=== PATIENT | male | born 1970 | race African-American/Black ===

== ENCOUNTER 2023-11-26 13:18 | Emergency (ER) | payer SELFPAY ==
[2023-11-26] MEDS: Aspirin 81 MG Tab.Chew PO ONE (13:58)
[2023-11-26 14:23] LABS: BASOPHILS ABSOLUTE AUTO 0.05 K/uL (0.00-0.20); BASOPHILS PERCENT AUTO 0.9 % (0.0-1.0); EOSINOPHILS PERCENT AUTO 1.8 % (0.0-6.0); HEMATOCRIT 34.3 % (42.0-52.0); IMMATURE GRAN ABSOLUTE AUTO 0.05 K/uL (0.00-0.05); IMMATURE GRAN PERCENT AUTO 0.9 % (0.0-0.4); LYMPHOCYTES ABSOLUTE AUTO 0.64 K/uL (1.00-4.80); LYMPHOCYTES PERCENT AUTO 11.7 % (24.0-44.0); MEAN CORPUSCULAR HEMOGLOBIN 27.2 pg (28.0-32.0); MEAN CORPUSCULAR HGB CONC 32.1 g/dL (32.0-36.0); MEAN CORPUSCULAR VOLUME 84.9 fL (83.0-99.0); MONOCYTES PERCENT AUTO 12.8 % (0.0-8.0); NEUTROPHILS ABSOLUTE AUTO 3.91 K/uL (1.80-7.70); NEUTROPHILS PERCENT AUTO 71.9 % (41.0-71.0); PLATELET COUNT,PLT 184 K/uL (150-400); RED BLOOD CELL COUNT 4.04 M/uL (4.52-5.90); WHITE BLOOD CELL COUNT,WBC 5.45 K/uL (3.9-11.3)
[2023-11-26 15:01] LABS: CORONAVIRUS COVID-19 NAA NEGATIVE (NEGATIVE); INFLUENZA A NAA NEGATIVE (NEGATIVE); INFLUENZA B NAA NEGATIVE (NEGATIVE); RESPIRATORY SYNCYTIAL VIR NAA NEGATIVE (NEGATIVE)
[2023-11-26 15:03] LABS: A/G RATIO 0.7 (0.9-1.6); ALBUMIN 2.6 g/dL (3.4-5.0); BILIRUBIN TOTAL 0.8 mg/dL (0.2-1.0); CARBON DIOXIDE,CO2 34.4 mmol/L (21.0-32.0); CREATININE 10.9 mg/dL (0.8-1.3); EST CRCL DRUG DOSING (CG) 7.36 mL/min; POTASSIUM,K 4.7 mmol/L (3.5-5.1); PROTEIN TOTAL,TP 6.5 g/dL (6.4-8.2)
[2023-11-26 15:06] LABS: TSH ULTRASENSITIVE 2.19 uIU/mL (0.36-3.74)
== END 2023-11-26 19:24 | disposition left against medical advice (07) ==
LOC: MW.ED 13:18
DX: J81.1 Chronic pulmonary edema (principal); I12.0 Hypertensive chronic kidney disease with stage 5 chronic kidney disease or end stage renal disease; N18.6 End stage renal disease; Z99.2 Dependence on renal dialysis; Z75.8 Other problems related to medical facilities and other health care
CPT/HCPCS: 0241U; 36415; 71045; 80053; 83690; 83735; 83880; 84443; 84484; 85025; 93005; 99285; A9270

== ENCOUNTER 2023-11-30 15:55 | Emergency (ER) | payer SELFPAY ==
[2023-11-30 16:46] LABS: BASOPHILS ABSOLUTE AUTO 0.06 K/uL (0.00-0.20); BASOPHILS PERCENT AUTO 1.1 % (0.0-1.0); EOSINOPHILS ABSOLUTE AUTO 0.07 K/uL (0.00-0.45); EOSINOPHILS PERCENT AUTO 1.2 % (0.0-6.0); HEMATOCRIT 32.1 % (42.0-52.0); HEMOGLOBIN 10.6 g/dL (14.0-18.0); IMMATURE GRAN ABSOLUTE AUTO 0.09 K/uL (0.00-0.05); IMMATURE GRAN PERCENT AUTO 1.6 % (0.0-0.4); LYMPHOCYTES ABSOLUTE AUTO 0.76 K/uL (1.00-4.80); LYMPHOCYTES PERCENT AUTO 13.4 % (24.0-44.0); MEAN CORPUSCULAR VOLUME 81.7 fL (83.0-99.0); MEAN PLATELET VOLUME 9.7 fL (9.4-12.4); MONOCYTES ABSOLUTE AUTO 0.61 K/uL (0.00-0.80); MONOCYTES PERCENT AUTO 10.8 % (0.0-8.0); NEUTROPHILS ABSOLUTE AUTO 4.07 K/uL (1.80-7.70); NEUTROPHILS PERCENT AUTO 71.9 % (41.0-71.0); PLATELET COUNT,PLT 196 K/uL (150-400); RED BLOOD CELL COUNT 3.93 M/uL (4.52-5.90); WHITE BLOOD CELL COUNT,WBC 5.66 K/uL (3.9-11.3)
[2023-11-30 17:12] LABS: A/G RATIO 0.6 (0.9-1.6); ALBUMIN 2.4 g/dL (3.4-5.0); BILIRUBIN TOTAL 0.7 mg/dL (0.2-1.0); CALCIUM 7.9 mg/dL (8.5-10.1); CARBON DIOXIDE,CO2 32.4 mmol/L (21.0-32.0); CREATININE 6.8 mg/dL (0.8-1.3); EST CRCL DRUG DOSING (CG) 14.11 mL/min; POTASSIUM,K 3.6 mmol/L (3.5-5.1); PROTEIN TOTAL,TP 6.4 g/dL (6.4-8.2)
== END 2023-11-30 18:52 | disposition home or self-care (01) ==
LOC: MW.ED 15:55
DX: K80.20 Calculus of gallbladder without cholecystitis without obstruction (principal); J90 Pleural effusion, not elsewhere classified; Z75.8 Other problems related to medical facilities and other health care
CPT/HCPCS: 36415; 76705; 76705-26; 80053; 83690; 85025; 99284

== ENCOUNTER 2023-12-23 23:45 | Emergency (ER) | payer MEDICARE ==
[2023-12-24 00:35] LABS: BASOPHILS ABSOLUTE AUTO 0.06 K/uL (0.00-0.20); BASOPHILS PERCENT AUTO 0.9 % (0.0-1.0); EOSINOPHILS ABSOLUTE AUTO 0.12 K/uL (0.00-0.45); EOSINOPHILS PERCENT AUTO 1.8 % (0.0-6.0); HEMATOCRIT 33.7 % (42.0-52.0); HEMOGLOBIN 11.1 g/dL (14.0-18.0); IMMATURE GRAN ABSOLUTE AUTO 0.09 K/uL (0.00-0.05); IMMATURE GRAN PERCENT AUTO 1.4 % (0.0-0.4); LYMPHOCYTES ABSOLUTE AUTO 0.78 K/uL (1.00-4.80); MEAN CORPUSCULAR HEMOGLOBIN 27.3 pg (28.0-32.0); MEAN CORPUSCULAR HGB CONC 32.9 g/dL (32.0-36.0); MEAN CORPUSCULAR VOLUME 82.8 fL (83.0-99.0); MEAN PLATELET VOLUME 9.6 fL (9.4-12.4); MONOCYTES ABSOLUTE AUTO 0.82 K/uL (0.00-0.80); MONOCYTES PERCENT AUTO 12.6 % (0.0-8.0); NEUTROPHILS ABSOLUTE AUTO 4.64 K/uL (1.80-7.70); NEUTROPHILS PERCENT AUTO 71.3 % (41.0-71.0); PLATELET COUNT,PLT 222 K/uL (150-400); RED BLOOD CELL COUNT 4.07 M/uL (4.52-5.90); WHITE BLOOD CELL COUNT,WBC 6.51 K/uL (3.9-11.3)
[2023-12-24 01:07] LABS: CALCIUM 8.3 mg/dL (8.5-10.1); CARBON DIOXIDE,CO2 26.9 mmol/L (21.0-32.0); EST CRCL DRUG DOSING (CG) 6.85 mL/min; POTASSIUM,K 5.3 mmol/L (3.5-5.1)
== END 2023-12-24 02:56 | disposition home or self-care (01) ==
LOC: MW.ED 23:45
DX: R07.9 Chest pain, unspecified (principal); Z79.899 Other long term (current) drug therapy
CPT/HCPCS: 36415; 71045; 71045-26; 80048; 84484; 85025; 93005; 93010; 99285

== ENCOUNTER 2024-03-30 19:29 | Emergency (ER) | payer SELFPAY ==
[2024-03-30] MEDS ORDERED: Sodium Chloride 0.9% 10 ML Syringe FLUSH PRN (19:33)
[2024-03-30] MEDS ORDERED: Sodium Chloride 0.9% 2.5 ML Syringe FLUSH PRN (19:33)
[2024-03-30 19:54] LABS: BASOPHILS ABSOLUTE AUTO 0.04 K/uL (0.00-0.20); BASOPHILS PERCENT AUTO 0.6 % (0.0-1.0); EOSINOPHILS ABSOLUTE AUTO 0.15 K/uL (0.00-0.45); EOSINOPHILS PERCENT AUTO 2.4 % (0.0-6.0); HEMATOCRIT 31.7 % (42.0-52.0); HEMOGLOBIN 10.5 g/dL (14.0-18.0); IMMATURE GRAN ABSOLUTE AUTO 0.03 K/uL (0.00-0.05); IMMATURE GRAN PERCENT AUTO 0.5 % (0.0-0.4); LYMPHOCYTES ABSOLUTE AUTO 0.89 K/uL (1.00-4.80); LYMPHOCYTES PERCENT AUTO 14.4 % (24.0-44.0); MEAN CORPUSCULAR HEMOGLOBIN 28.7 pg (28.0-32.0); MEAN CORPUSCULAR HGB CONC 33.1 g/dL (32.0-36.0); MEAN CORPUSCULAR VOLUME 86.6 fL (83.0-99.0); MEAN PLATELET VOLUME 9.8 fL (9.4-12.4); MONOCYTES ABSOLUTE AUTO 0.68 K/uL (0.00-0.80); NEUTROPHILS ABSOLUTE AUTO 4.39 K/uL (1.80-7.70); NEUTROPHILS PERCENT AUTO 71.1 % (41.0-71.0); PLATELET COUNT,PLT 180 K/uL (150-400); RED BLOOD CELL COUNT 3.66 M/uL (4.52-5.90); WHITE BLOOD CELL COUNT,WBC 6.18 K/uL (3.9-11.3)
[2024-03-30 20:18] LABS: A/G RATIO 0.7 (0.9-1.6); ALBUMIN 2.8 g/dL (3.4-5.0); BILIRUBIN TOTAL 1.2 mg/dL (0.2-1.0); CALCIUM 8.4 mg/dL (8.5-10.1); CARBON DIOXIDE,CO2 25.8 mmol/L (21.0-32.0); CREATININE 16.6 mg/dL (0.8-1.3); EST CRCL DRUG DOSING (CG) 5.78 mL/min; POTASSIUM,K 4.7 mmol/L (3.5-5.1); PROTEIN TOTAL,TP 7.1 g/dL (6.4-8.2)
[2024-03-30] MEDS: Nitroglycerin 2% Oint 1 GM UD Packet TOP ONE (21:46)
[2024-03-30] MEDS: cloNIDine 0.1 MG Tab PO ONE (21:46)
[2024-03-31] MEDS: Ondansetron 4 MG/2 ML SDV IVPUSH ONE (02:04)
[2024-03-31] MEDS: Acetaminophen 325 MG Tab PO ONE (02:04)
== END 2024-03-31 05:16 | disposition home or self-care (01) ==
LOC: MW.ED 19:29
DX: J81.1 Chronic pulmonary edema (principal); I12.0 Hypertensive chronic kidney disease with stage 5 chronic kidney disease or end stage renal disease; N18.6 End stage renal disease; Z79.899 Other long term (current) drug therapy; Z75.8 Other problems related to medical facilities and other health care
CPT/HCPCS: 36415; 71045; 80053; 84484; 85025; 93005; 96374; 99285; A9270; J2405; 93010

== ENCOUNTER 2024-03-31 10:07 | Emergency (ER) | payer SELFPAY ==
[~2024-03-31 10:07] MED LIST: Etomidate 2 MG/ML 20 ML SDV IVPUSH ONE; Rocuronium 100 MG/10 ML MDV IVPUSH ONE
[2024-03-31] MEDS: Sodium Bicarbonate 8.4% 50 MEQ/50 ML Syringe IVPUSH ONE (10:07)
[2024-03-31] MEDS: 50% Dextrose in Water 50 ML Syringe IVPUSH ONE (10:07)
[2024-03-31] MEDS: Nitroglycerin/D5W 25 MG/250 ML BOTTLE IV SCH (10:08)
[2024-03-31] MEDS ORDERED: Ampicillin/Sulbactam Na 3 GM in Sodium Chloride 0.9% 100 ML IV ONE (10:13)
[2024-03-31] MEDS: propofoL 1,000 MG/100 ML 100 ML IV SCH ×2 (10:15→12:45)
[2024-03-31 10:17] LABS: EOSINOPHILS ABSOLUTE AUTO 0.17 K/uL (0.00-0.45); EOSINOPHILS PERCENT AUTO 1.6 % (0.0-6.0); HEMATOCRIT 36.9 % (42.0-52.0); HEMOGLOBIN 11.2 g/dL (14.0-18.0); IMMATURE GRAN ABSOLUTE AUTO 0.09 K/uL (0.00-0.05); IMMATURE GRAN PERCENT AUTO 0.9 % (0.0-0.4); LYMPHOCYTES ABSOLUTE AUTO 3.18 K/uL (1.00-4.80); LYMPHOCYTES PERCENT AUTO 30.5 % (24.0-44.0); MEAN CORPUSCULAR HEMOGLOBIN 28.6 pg (28.0-32.0); MEAN CORPUSCULAR HGB CONC 30.4 g/dL (32.0-36.0); MEAN CORPUSCULAR VOLUME 94.1 fL (83.0-99.0); MEAN PLATELET VOLUME 10.3 fL (9.4-12.4); MONOCYTES ABSOLUTE AUTO 1.27 K/uL (0.00-0.80); MONOCYTES PERCENT AUTO 12.2 % (0.0-8.0); NEUTROPHILS ABSOLUTE AUTO 5.62 K/uL (1.80-7.70); NEUTROPHILS PERCENT AUTO 53.8 % (41.0-71.0); PLATELET COUNT,PLT 217 K/uL (150-400); RED BLOOD CELL COUNT 3.92 M/uL (4.52-5.90); WHITE BLOOD CELL COUNT,WBC 10.43 K/uL (3.9-11.3)
[2024-03-31] MEDS: fentaNYL/Normal Saline 2,500 MCG in Premix Bag 1 BAG IV PRN (10:23)
[2024-03-31 10:29] LABS: INR 1.12 (0.86-1.11)
[2024-03-31] MEDS: Propofol 200 MG/20 ML SDV IVPUSH ONE ×2 (10:34→12:39)
[2024-03-31] MEDS: Calcium Gluconate 10% 1 GM/10 ML SDV IVPUSH ONE (10:35)
[2024-03-31 10:36] LABS: PCO2 ARTERIAL 63 mmHG (35-45); PO2 ARTERIAL 149 mmHG (80-105)
[2024-03-31 10:37] LABS: BICARBONATE,ARTERIAL 24 mEq/L (22-26)
[2024-03-31] MEDS: Nitroglycerin 0.4 MG Tab.SL SL PRN (10:44)
[2024-03-31 10:50] LABS: A/G RATIO 0.7 (0.9-1.6); ALANINE AMINOTRANSFERASE,ALT 59 IU/L (14-63); ALBUMIN 2.8 g/dL (3.4-5.0); ALKALINE PHOSPHATASE 140 U/L (46-116); ASPARTATE AMNIOTRANSFERASE,AST 38 IU/L (15-37); BILIRUBIN TOTAL 1.3 mg/dL (0.2-1.0); BLOOD UREA NITROGEN,BUN 39 mg/dL (7.0-18.0); CALCIUM 8.4 mg/dL (8.5-10.1); CARBON DIOXIDE,CO2 21.9 mmol/L (21.0-32.0); CHLORIDE,CL 98 mmol/L (98-107); CREATININE 8.9 mg/dL (0.8-1.3); GLUCOSE RANDOM 144 mg/dL (74-106); LIPASE 21 U/L (16-77); MAGNESIUM 2.5 mg/dL (1.8-2.4); PHOSPHORUS 5.2 mg/dL (2.6-4.7); POTASSIUM,K 3.6 mmol/L (3.5-5.1); PROTEIN TOTAL,TP 7.1 g/dL (6.4-8.2); SODIUM,NA 145 mmol/L (136-148)
[2024-03-31 10:51] LABS: ESTIMATED GFR 7 mL/min (>60)
[2024-03-31] MEDS: Metoprolol Tartrate 5 MG/5 ML SDV IVPUSH ONE (11:53)
[2024-03-31 11:58] LABS: PRO B-TYPE NATRIUR PEPT,BNPPRO > 35000 pg/mL (0-125)
[2024-03-31] MEDS: Propofol 200 MG/20 ML SDV IVPUSH STA (12:04)
[2024-03-31] MEDS ORDERED: Midazolam HCl In 0.9 % NaCl/Pf 100 ML IV SCH (12:45)
[2024-03-31] MEDS: cefTRIAXone 2 GM in Sodium Chloride 0.9% 50 ML IV ONE (12:51)
[2024-03-31] MEDS ORDERED: propofoL 1,000 MG/100 ML 100 ML IV ONE (12:53)
[2024-03-31] MEDS: Doxycycline 100 MG in Sodium Chloride 0.9% 100 ML IV ONE (12:59)
[2024-03-31] MEDS: Calcium Gluconate 10% 1 GM/10 ML SDV ONE (13:46)
[2024-03-31] MEDS: Propofol 200 MG/20 ML SDV ONE (13:46)
[2024-03-31] MEDS: Nitroglycerin/D5W 25 MG/250 ML BOTTLE ONE (13:47)
[2024-03-31] MEDS: fentaNYL/Normal Saline 250 ML ONE (13:47)
== END 2024-03-31 13:31 ==
LOC: MW.ED 10:07
DX: J96.01 Acute respiratory failure with hypoxia (principal); J81.0 Acute pulmonary edema; I48.91 Unspecified atrial fibrillation; I16.1 Hypertensive emergency; R41.82 Altered mental status, unspecified; N18.6 End stage renal disease; E16.2 Hypoglycemia, unspecified; R56.9 Unspecified convulsions; Z99.2 Dependence on renal dialysis
CPT/HCPCS: 31500; 36415; 36600; 51702; 70450; 71045; 71250; 74176; 80053; 82803; 83605; 83690; 83735; 83880; 84100; 84484; 85025; 85610; 87040; 93005; 96365; 96366; 96367; 96368; 96375; 99291; 99292; A9270; J0612; J0696; J2305; J2704; J3490; 36620; 93010; 99285

== ENCOUNTER 2024-04-14 05:09 | Emergency (ER) | payer SELFPAY ==
[2024-04-14] MEDS: Cyclobenzaprine 10 MG Tab PO ONE (06:18)
[2024-04-14] MEDS: Acetaminophen 500 MG Tab PO ONE (06:18)
== END 2024-04-14 06:31 | disposition home or self-care (01) ==
LOC: MW.ED 05:09
DX: S16.1XXA Strain of muscle, fascia and tendon at neck level, initial encounter (principal); Z79.899 Other long term (current) drug therapy; X58.XXXA Exposure to other specified factors, initial encounter
CPT/HCPCS: 99283; A9270

== ENCOUNTER 2024-04-30 04:55 | Emergency (ER) | payer MEDICARE ==
[2024-04-30] MEDS ORDERED: Sodium Chloride 0.9% 2.5 ML Syringe FLUSH PRN (05:26)
[2024-04-30] MEDS ORDERED: Sodium Chloride 0.9% 20 ML SDV IV PRN (05:26)
[2024-04-30] MEDS ORDERED: Sodium Chloride 0.9% 10 ML Syringe FLUSH PRN (05:26)
[2024-04-30 05:44] LABS: BASOPHILS ABSOLUTE AUTO 0.05 K/uL (0.00-0.20); BASOPHILS PERCENT AUTO 0.7 % (0.0-1.0); EOSINOPHILS ABSOLUTE AUTO 0.18 K/uL (0.00-0.45); EOSINOPHILS PERCENT AUTO 2.6 % (0.0-6.0); HEMATOCRIT 32.3 % (42.0-52.0); HEMOGLOBIN 9.9 g/dL (14.0-18.0); IMMATURE GRAN ABSOLUTE AUTO 0.03 K/uL (0.00-0.05); IMMATURE GRAN PERCENT AUTO 0.4 % (0.0-0.4); LYMPHOCYTES ABSOLUTE AUTO 0.97 K/uL (1.00-4.80); MEAN CORPUSCULAR HGB CONC 30.7 g/dL (32.0-36.0); MEAN CORPUSCULAR VOLUME 91.5 fL (83.0-99.0); MEAN PLATELET VOLUME 9.9 fL (9.4-12.4); NEUTROPHILS PERCENT AUTO 69.3 % (41.0-71.0); PLATELET COUNT,PLT 288 K/uL (150-400); RED BLOOD CELL COUNT 3.53 M/uL (4.52-5.90); WHITE BLOOD CELL COUNT,WBC 6.93 K/uL (3.9-11.3)
[2024-04-30 06:12] LABS: A/G RATIO 0.5 (0.9-1.6); ALBUMIN 2.7 g/dL (3.4-5.0); BILIRUBIN TOTAL 0.9 mg/dL (0.2-1.0); CALCIUM 9.2 mg/dL (8.5-10.1); CARBON DIOXIDE,CO2 33.1 mmol/L (21.0-32.0); CREATININE 10.1 mg/dL (0.8-1.3); EST CRCL DRUG DOSING (CG) 9.5 mL/min; POTASSIUM,K 4.5 mmol/L (3.5-5.1); PROTEIN TOTAL,TP 7.9 g/dL (6.4-8.2)
[2024-04-30] MEDS: cefTRIAXone 1 GM in Sodium Chloride 0.9% 50 ML IV ONE (07:17)
[2024-04-30] MEDS: Doxycycline 100 MG in Sodium Chloride 0.9% 100 ML IV SCH (07:21)
[2024-04-30] MEDS: Nitroglycerin 0.4 MG Tab.SL SL ONE (07:21)
[2024-04-30] MEDS: Nitroglycerin/D5W 25 MG/250 ML BOTTLE IV SCH (07:52)
== END 2024-04-30 09:53 ==
LOC: MW.ED 04:55
DX: J96.01 Acute respiratory failure with hypoxia (principal); I16.0 Hypertensive urgency; I12.0 Hypertensive chronic kidney disease with stage 5 chronic kidney disease or end stage renal disease; N18.9 Chronic kidney disease, unspecified; J81.0 Acute pulmonary edema; J90 Pleural effusion, not elsewhere classified; Z99.2 Dependence on renal dialysis; Z79.899 Other long term (current) drug therapy
CPT/HCPCS: 36415; 71046; 80053; 83880; 84484; 85025; 87040; 87428; 93005; 96365; 96366; 96367; 96368; 99285; A9270; J0696; J2305; J3490; 93010

== ENCOUNTER 2024-05-25 07:12 | Emergency (ER) | payer MEDICARE ==
[2024-05-25 07:42] LABS: BASOPHILS ABSOLUTE AUTO 0.05 K/uL (0.00-0.20); EOSINOPHILS ABSOLUTE AUTO 0.16 K/uL (0.00-0.45); EOSINOPHILS PERCENT AUTO 3.3 % (0.0-6.0); HEMATOCRIT 29.3 % (42.0-52.0); HEMOGLOBIN 9.3 g/dL (14.0-18.0); IMMATURE GRAN ABSOLUTE AUTO 0.04 K/uL (0.00-0.05); IMMATURE GRAN PERCENT AUTO 0.8 % (0.0-0.4); LYMPHOCYTES ABSOLUTE AUTO 0.64 K/uL (1.00-4.80); LYMPHOCYTES PERCENT AUTO 13.2 % (24.0-44.0); MEAN CORPUSCULAR HEMOGLOBIN 28.9 pg (28.0-32.0); MEAN CORPUSCULAR HGB CONC 31.7 g/dL (32.0-36.0); MONOCYTES ABSOLUTE AUTO 0.54 K/uL (0.00-0.80); MONOCYTES PERCENT AUTO 11.1 % (0.0-8.0); NEUTROPHILS ABSOLUTE AUTO 3.43 K/uL (1.80-7.70); NEUTROPHILS PERCENT AUTO 70.6 % (41.0-71.0); PLATELET COUNT,PLT 186 K/uL (150-400); RED BLOOD CELL COUNT 3.22 M/uL (4.52-5.90); WHITE BLOOD CELL COUNT,WBC 4.86 K/uL (3.9-11.3)
[2024-05-25] MEDS: Iopamidol 755 MG/ML 500 ML Multipack Bottle IVPUSH STA (07:44)
[2024-05-25 07:45] LABS: PH,VENOUS 7.38 (7.32-7.43)
[2024-05-25 07:46] LABS: BASE EXCESS VENOUS 5.3 (-2.0-3.0)
[2024-05-25 08:08] LABS: A/G RATIO 0.6 (0.9-1.6); ALANINE AMINOTRANSFERASE,ALT 19 IU/L (14-63); ALBUMIN 2.5 g/dL (3.4-5.0); ALKALINE PHOSPHATASE 106 U/L (46-116); ASPARTATE AMNIOTRANSFERASE,AST 18 IU/L (15-37); BILIRUBIN TOTAL 0.6 mg/dL (0.2-1.0); BLOOD UREA NITROGEN,BUN 57 mg/dL (7.0-18.0); CALCIUM 8.3 mg/dL (8.5-10.1); CHLORIDE,CL 104 mmol/L (98-107); CREATININE 7.8 mg/dL (0.8-1.3); GLUCOSE RANDOM 107 mg/dL (74-106); MAGNESIUM 2.4 mg/dL (1.8-2.4); POTASSIUM,K 4.5 mmol/L (3.5-5.1); PROTEIN TOTAL,TP 6.8 g/dL (6.4-8.2); SODIUM,NA 141 mmol/L (136-148)
[2024-05-25 08:14] LABS: ESTIMATED GFR 8 mL/min (>60)
[2024-05-25] MEDS: Aspirin 81 MG Tab.Chew PO ONE (08:57)
[2024-05-25] MEDS: Clopidogrel 75 MG Tab PO ONE (08:57)
== END 2024-05-25 12:15 | disposition home or self-care (01) ==
LOC: MW.ED 07:12
DX: R20.2 Paresthesia of skin (principal); Z79.899 Other long term (current) drug therapy
CPT/HCPCS: 36415; 70450; 70496; 70498; 70551; 71045; 80053; 82803; 83735; 84484; 85025; 93005; 99285; A9270; Q9967; 99283

== ENCOUNTER 2024-06-08 03:04 | Emergency (ER) | payer MEDICARE ==
[2024-06-08] MEDS ORDERED: Lidocaine 1% with EPINEPHrine 1:200,000 30 ML SDV ONE (04:44)
[2024-06-08] MEDS ORDERED: HYDROmorphone 1 MG/ML Syringe ONE (04:47)
[2024-06-08] MEDS ORDERED: Ondansetron 4 MG/2 ML SDV ONE (04:53)
[2024-06-08] MEDS ORDERED: ceFAZolin 2 GM Vial ONE (05:15)
[2024-06-08] MEDS ORDERED: Sodium Chloride 0.9% 100 ML ONE (05:28)
[2024-06-08 11:18] LABS: A/G RATIO 0.7 (0.9-1.6); ALBUMIN 2.4 g/dL (3.4-5.0); BILIRUBIN TOTAL 0.9 mg/dL (0.2-1.0); CALCIUM 8.2 mg/dL (8.5-10.1); CREATININE 7.8 mg/dL (0.8-1.3); EST CRCL DRUG DOSING (CG) 12.16 mL/min; POTASSIUM,K 4.1 mmol/L (3.5-5.1)
[2024-06-09 22:03] LABS: BASOPHILS ABSOLUTE AUTO 0.07 K/uL (0.00-0.20); BASOPHILS PERCENT AUTO 0.7 % (0.0-1.0); EOSINOPHILS ABSOLUTE AUTO 0.28 K/uL (0.00-0.45); EOSINOPHILS PERCENT AUTO 2.9 % (0.0-6.0); HEMATOCRIT 26.3 % (42.0-52.0); HEMOGLOBIN 8.1 g/dL (14.0-18.0); IMMATURE GRAN ABSOLUTE AUTO 0.05 K/uL (0.00-0.05); IMMATURE GRAN PERCENT AUTO 0.5 % (0.0-0.4); LYMPHOCYTES PERCENT AUTO 23.1 % (24.0-44.0); MEAN CORPUSCULAR HEMOGLOBIN 27.7 pg (28.0-32.0); MEAN CORPUSCULAR HGB CONC 30.8 g/dL (32.0-36.0); MEAN CORPUSCULAR VOLUME 90.1 fL (83.0-99.0); MEAN PLATELET VOLUME 9.8 fL (9.4-12.4); MONOCYTES ABSOLUTE AUTO 1.06 K/uL (0.00-0.80); MONOCYTES PERCENT AUTO 11.1 % (0.0-8.0); NEUTROPHILS ABSOLUTE AUTO 5.87 K/uL (1.80-7.70); NEUTROPHILS PERCENT AUTO 61.7 % (41.0-71.0); PLATELET COUNT,PLT 237 K/uL (150-400); RED BLOOD CELL COUNT 2.92 M/uL (4.52-5.90); WHITE BLOOD CELL COUNT,WBC 9.53 K/uL (3.9-11.3)
[2024-06-09 22:03] LABS: BASOPHILS ABSOLUTE AUTO 0.04 K/uL (0.00-0.20); BASOPHILS PERCENT AUTO 0.9 % (0.0-1.0); EOSINOPHILS ABSOLUTE AUTO 0.17 K/uL (0.00-0.45); EOSINOPHILS PERCENT AUTO 3.8 % (0.0-6.0); HEMATOCRIT 27.3 % (42.0-52.0); HEMOGLOBIN 8.4 g/dL (14.0-18.0); IMMATURE GRAN ABSOLUTE AUTO 0.04 K/uL (0.00-0.05); IMMATURE GRAN PERCENT AUTO 0.9 % (0.0-0.4); LYMPHOCYTES ABSOLUTE AUTO 0.72 K/uL (1.00-4.80); LYMPHOCYTES PERCENT AUTO 16.2 % (24.0-44.0); MEAN CORPUSCULAR HEMOGLOBIN 28.2 pg (28.0-32.0); MEAN CORPUSCULAR HGB CONC 30.8 g/dL (32.0-36.0); MEAN CORPUSCULAR VOLUME 91.6 fL (83.0-99.0); MONOCYTES ABSOLUTE AUTO 0.55 K/uL (0.00-0.80); MONOCYTES PERCENT AUTO 12.4 % (0.0-8.0); NEUTROPHILS ABSOLUTE AUTO 2.93 K/uL (1.80-7.70); NEUTROPHILS PERCENT AUTO 65.8 % (41.0-71.0); PLATELET COUNT,PLT 178 K/uL (150-400); RED BLOOD CELL COUNT 2.98 M/uL (4.52-5.90); WHITE BLOOD CELL COUNT,WBC 4.45 K/uL (3.9-11.3)
== END 2024-06-08 06:01 ==
LOC: MW.ED 03:04
DX: T82.590A Other mechanical complication of surgically created arteriovenous fistula, initial encounter (principal); T82.838A Hemorrhage due to vascular prosthetic devices, implants and grafts, initial encounter; N18.6 End stage renal disease; Z99.2 Dependence on renal dialysis; Z91.010 Allergy to peanuts; Z91.018 Allergy to other foods; Z88.8 Allergy status to other drugs, medicaments and biological substances
CPT/HCPCS: 36415; 36430; 80053; 85025; 86850; 86900; 86901; 86920; 99285; J0690; J1171; J2405; P9016; 12001; 99291

== ENCOUNTER 2024-06-29 09:52 | Emergency (ER) | payer MEDICARE, MEDICAID ==
[2024-06-29 10:48] LABS: A/G RATIO 0.5 (0.9-1.6); ALBUMIN 2.4 g/dL (3.4-5.0); BILIRUBIN TOTAL 0.7 mg/dL (0.2-1.0); CALCIUM 8.4 mg/dL (8.5-10.1); CARBON DIOXIDE,CO2 32.6 mmol/L (21.0-32.0); CREATININE 8.9 mg/dL (0.8-1.3); EST CRCL DRUG DOSING (CG) 10.66 mL/min; POTASSIUM,K 4.8 mmol/L (3.5-5.1); PROTEIN TOTAL,TP 6.9 g/dL (6.4-8.2)
== END 2024-06-29 10:48 ==
LOC: MW.ED 09:52
DX: T82.838A Hemorrhage due to vascular prosthetic devices, implants and grafts, initial encounter (principal); N18.6 End stage renal disease; Z99.2 Dependence on renal dialysis; Z79.899 Other long term (current) drug therapy
CPT/HCPCS: 36415; 80053; 99285

== ENCOUNTER 2024-08-08 04:39 | Emergency (ER) | payer MEDICARE, MEDICAID ==
[2024-08-08 05:02] LABS: BASOPHILS ABSOLUTE AUTO 0.05 K/uL (0.00-0.20); BASOPHILS PERCENT AUTO 0.6 % (0.0-1.0); EOSINOPHILS ABSOLUTE AUTO 0.07 K/uL (0.00-0.45); EOSINOPHILS PERCENT AUTO 0.9 % (0.0-6.0); HEMATOCRIT 35.7 % (42.0-52.0); HEMOGLOBIN 11.3 g/dL (14.0-18.0); IMMATURE GRAN ABSOLUTE AUTO 0.05 K/uL (0.00-0.05); IMMATURE GRAN PERCENT AUTO 0.6 % (0.0-0.4); LYMPHOCYTES ABSOLUTE AUTO 0.93 K/uL (1.00-4.80); LYMPHOCYTES PERCENT AUTO 11.9 % (24.0-44.0); MEAN CORPUSCULAR HEMOGLOBIN 28.6 pg (28.0-32.0); MEAN CORPUSCULAR HGB CONC 31.7 g/dL (32.0-36.0); MEAN CORPUSCULAR VOLUME 90.4 fL (83.0-99.0); MEAN PLATELET VOLUME 10.4 fL (9.4-12.4); MONOCYTES ABSOLUTE AUTO 0.89 K/uL (0.00-0.80); MONOCYTES PERCENT AUTO 11.4 % (0.0-8.0); NEUTROPHILS ABSOLUTE AUTO 5.85 K/uL (1.80-7.70); NEUTROPHILS PERCENT AUTO 74.6 % (41.0-71.0); PLATELET COUNT,PLT 178 K/uL (150-400); RED BLOOD CELL COUNT 3.95 M/uL (4.52-5.90); WHITE BLOOD CELL COUNT,WBC 7.84 K/uL (3.9-11.3)
[2024-08-08 05:28] LABS: A/G RATIO 0.6 (0.9-1.6); ALBUMIN 2.9 g/dL (3.4-5.0); BILIRUBIN TOTAL 0.9 mg/dL (0.2-1.0); CALCIUM 8.6 mg/dL (8.5-10.1); CARBON DIOXIDE,CO2 30.4 mmol/L (21.0-32.0); CREATININE 10.7 mg/dL (0.8-1.3); EST CRCL DRUG DOSING (CG) 8.86 mL/min; POTASSIUM,K 4.6 mmol/L (3.5-5.1); PROTEIN TOTAL,TP 7.4 g/dL (6.4-8.2)
[2024-08-08] MEDS: hydrALAZINE 20 MG/ML SDV IVPUSH ONE ×2 (06:38→08:27)
[2024-08-08] MEDS ORDERED: Naloxone 0.4 MG/ML SDV IVPUSH PRN (08:47)
[2024-08-08] MEDS: Morphine 2 MG/ML SYRINGE IVPUSH ONE (09:00)
== END 2024-08-08 10:01 | disposition home or self-care (01) ==
LOC: MW.ED 04:39
DX: I12.0 Hypertensive chronic kidney disease with stage 5 chronic kidney disease or end stage renal disease (principal); N18.6 End stage renal disease; Z88.8 Allergy status to other drugs, medicaments and biological substances; Z91.011 Allergy to milk products; Z91.018 Allergy to other foods; Z79.899 Other long term (current) drug therapy; Z99.2 Dependence on renal dialysis
CPT/HCPCS: 36415; 70450; 71045; 80053; 84484; 85025; 93005; 96374; 96375; 96376; 99285; J0360; J2270; 93010; 99283

== ENCOUNTER 2024-08-15 06:57 | Emergency (ER) | payer MEDICARE, MEDICAID | END 2024-08-15 08:01 | disposition home or self-care (01) | LOC: MW.ED 06:57 | DX: I12.0 Hypertensive chronic kidney disease with stage 5 chronic kidney disease or end stage renal disease (principal); J90 Pleural effusion, not elsewhere classified; N18.6 End stage renal disease; Z91.010 Allergy to peanuts; Z88.8 Allergy status to other drugs, medicaments and biological substances; Z91.018 Allergy to other foods; Z79.899 Other long term (current) drug therapy; Z99.2 Dependence on renal dialysis | CPT/HCPCS: 71045; 71045-26; 93005; 99284 ==

== ENCOUNTER 2024-11-03 11:29 | Emergency (ER) | payer MEDICARE ==
[2024-11-03 12:25] LABS: BASOPHILS ABSOLUTE AUTO 0.04 K/uL (0.00-0.20); BASOPHILS PERCENT AUTO 0.6 % (0.0-1.0); EOSINOPHILS ABSOLUTE AUTO 0.06 K/uL (0.00-0.45); EOSINOPHILS PERCENT AUTO 0.9 % (0.0-6.0); IMMATURE GRAN ABSOLUTE AUTO 0.01 K/uL (0.00-0.05); IMMATURE GRAN PERCENT AUTO 0.1 % (0.0-0.4); LYMPHOCYTES ABSOLUTE AUTO 0.61 K/uL (1.00-4.80); LYMPHOCYTES PERCENT AUTO 8.9 % (24.0-44.0); MEAN PLATELET VOLUME 9.4 fL (9.4-12.4); MONOCYTES ABSOLUTE AUTO 0.60 K/uL (0.00-0.80); MONOCYTES PERCENT AUTO 8.7 % (0.0-8.0); NEUTROPHILS ABSOLUTE AUTO 5.57 K/uL (1.80-7.70); NEUTROPHILS PERCENT AUTO 80.8 % (41.0-71.0); NRBC ABSOLUTE 0.00 K/uL (0.00-0.02); NRBC PERCENT 0.0 /100WBC (0.0-0.2); PLATELET COUNT,PLT 183 K/uL (150-400); RED BLOOD CELL COUNT 3.89 M/uL (4.52-5.90); WHITE BLOOD CELL COUNT,WBC 6.89 K/uL (3.9-11.3)
[2024-11-03 13:06] LABS: A/G RATIO 0.6 (0.9-1.6); ALANINE AMINOTRANSFERASE,ALT 14.0 IU/L (14-63); ASPARTATE AMNIOTRANSFERASE,AST 20.0 IU/L (15-37); BILIRUBIN TOTAL 1.3 mg/dL (0.2-1.0); BLOOD UREA NITROGEN,BUN 15.0 mg/dL (7.0-18.0); CARBON DIOXIDE,CO2 34.6 mmol/L (21.0-32.0); CHLORIDE,CL 96.0 mmol/L (98-107); CREATININE 4.2 mg/dL (0.8-1.3); EST CRCL DRUG DOSING (CG) 22.58 mL/min; GLUCOSE RANDOM 76.0 mg/dL (74-106); POTASSIUM,K 3.5 mmol/L (3.5-5.1); PROTEIN TOTAL,TP 7.4 g/dL (6.4-8.2); SODIUM,NA 138.0 mmol/L (136-148)
[2024-11-03 13:10] LABS: ESTIMATED GFR 16.0 mL/min (>60)
== END 2024-11-03 16:03 | disposition home or self-care (01) ==
LOC: MW.ED 11:29
DX: T82.590A Other mechanical complication of surgically created arteriovenous fistula, initial encounter (principal); Z91.010 Allergy to peanuts; Z88.8 Allergy status to other drugs, medicaments and biological substances; Z91.018 Allergy to other foods; Z79.899 Other long term (current) drug therapy; Z75.3 Unavailability and inaccessibility of health-care facilities
CPT/HCPCS: 36415; 80053; 85025; 93925; 93925-26; 99284

== ENCOUNTER 2024-12-25 07:10 | Day surgery (SDC) | payer MEDICARE, MEDICAID ==
[2024-12-25] MEDS ORDERED: propofoL 500 MG/50 ML 50 ML ONE (07:44)
[2024-12-25] MEDS ORDERED: Lactated Ringers 1,000 ML IV SCH (08:00)
[2024-12-25] MEDS ORDERED: Ketamine HCL/NACL, ISO-OSM 50 MG/5 ML Syringe ONE (08:42)
[2024-12-25] MEDS ORDERED: Ondansetron 4 MG/2 ML SDV ONE (08:52)
[2024-12-25] MEDS ORDERED: Propofol 200 MG/20 ML SDV ONE ×2 (09:00→09:45)
[2024-12-25] MEDS ORDERED: Ropivacaine 0.5% 5 MG/ML 30 ML SDV ONE (16:25)
== END 2024-12-25 11:05 | disposition home or self-care (01) ==
LOC: MW.SDS 07:10
PROVIDERS: ATTEND Surgery
DX: Z12.11 Encounter for screening for malignant neoplasm of colon (principal); D12.0 Benign neoplasm of cecum; I47.10 Supraventricular tachycardia, unspecified; I10 Essential (primary) hypertension; Z88.8 Allergy status to other drugs, medicaments and biological substances; Z91.018 Allergy to other foods; Z79.899 Other long term (current) drug therapy
CPT/HCPCS: 88305; J2371; J2405; J2704; J2795; J3490; J7040